=== PATIENT | male | born 1945 | race Caucasian/White ===

== ENCOUNTER 2018-02-28 13:36 | Inpatient (IN) | payer OTHER, MEDICARE ==
[~2018-02-28] VITALS: Ht 177.8 cm; Wt 93.1 kg
[2018-02-28 14:29] LABS: BASOPHIL % 0.3 % (0-2); PLATELET COUNT 226 x10^3mcL (130-400); RED CELL DISTRIBUTION WIDTH 13.3 % (11.5-14.5)
[2018-02-28 14:31] LABS: CALCIUM 8.4 mg/dL (8.5-10.1); CARBON DIOXIDE 28.6 mmol/L (21-32); CHLORIDE SERUM 103 mmol/L (98-107); CREATININE SERUM 1.5 mg/dL (0.7-1.3); GLUCOSE SERUM 98 mg/dL (74-106); POTASSIUM SERUM 3.1 mmol/L (3.5-5.1); SODIUM SERUM 141 mmol/L (136-145)
[2018-02-28 14:36] LABS: ALKALINE PHOSPHATASE 56 U/L (46-116); ALT/SGPT 13 U/L (16-63); AST/SGOT 15 U/L (15-37); BILIRUBIN TOTAL 0.8 mg/dL (0.20-1.00); TOTAL PROTEIN, SERUM 6.4 g/dL (6.4-8.2)
[2018-02-28 14:37] LABS: ALBUMIN 3.1 g/dL (3.4-5.0)
[2018-02-28] MEDS ORDERED: ASPIR 8181 MG PO (14:40)
[2018-02-28] MEDS ORDERED: SIMVASTATIN40 M1 PO (14:41)
[2018-02-28] MEDS ORDERED: NAMENDA10 M2 PO (14:41)
[2018-02-28] MEDS ORDERED: BENAZEPRIL HYDR20 M1 PO (14:41)
[2018-02-28 15:38] LABS: T3 TOTAL 0.79 ng/mL
[2018-02-28 15:53] LABS: FREE T4 1.19 ng/dL (0.76-1.46); FREE THYROXINE INDEX 2.7 ug/dL (1.4-4.5); T4(THYROXINE) 7.2 ug/dL (4.7-13.3)
[2018-02-28 16:00] VITALS: BP 95/57
[2018-02-28 16:01] LABS: ALBUMIN 3.1 g/dL (3.4-5.0); CHOLESTEROL/HDL RATIO 3.2
[2018-02-28 17:30] VITALS: BP 95/55
[2018-02-28 19:15] VITALS: BP 94/48
[2018-02-28 20:50] VITALS: BP 92/53
[2018-02-28 20:56] LABS: microscopic required? YES; urine erythrocyte 2+ (NEGATIVE)
[2018-03-01 05:23] VITALS: BP 96/62
[2018-03-01 05:31] VITALS: BP 96/62
[2018-03-01 05:54] LABS: CALCIUM 7.6 mg/dL (8.5-10.1); CARBON DIOXIDE 24.3 mmol/L (21-32); CHLORIDE SERUM 108 mmol/L (98-107); CREATININE SERUM 1.2 mg/dL (0.7-1.3); GLUCOSE SERUM 106 mg/dL (74-106); MAGNESIUM 1.9 mg/dL (1.8-2.4); PHOSPHOROUS 3.2 mg/dL (2.5-4.9); SODIUM SERUM 143 mmol/L (136-145)
[2018-03-01 05:56] LABS: POTASSIUM SERUM 2.9 mmol/L (3.5-5.1)
[2018-03-01 06:04] LABS: BASOPHIL % 0.1 % (0-2); PLATELET COUNT 201 x10^3mcL (130-400); RED CELL DISTRIBUTION WIDTH 13.5 % (11.5-14.5)
[2018-03-01 06:29] VITALS: BP 110/57
[2018-03-01 08:37] VITALS: BP 107/60
[2018-03-01 12:50] VITALS: BP 114/70
[2018-03-01 17:05] LABS: CALCIUM 7.6 mg/dL (8.5-10.1); CARBON DIOXIDE 27.4 mmol/L (21-32); CHLORIDE SERUM 108 mmol/L (98-107); CREATININE SERUM 1.1 mg/dL (0.7-1.3); GLUCOSE SERUM 93 mg/dL (74-106); POTASSIUM SERUM 3.6 mmol/L (3.5-5.1); SODIUM SERUM 141 mmol/L (136-145)
[2018-03-01 20:27] VITALS: BP 112/69
[2018-03-02 05:48] VITALS: BP 105/69
[2018-03-02 06:34] LABS: BASOPHIL % 0.2 % (0-2); PLATELET COUNT 190 x10^3mcL (130-400); RED CELL DISTRIBUTION WIDTH 13.6 % (11.5-14.5)
[2018-03-02 06:49] LABS: CALCIUM 7.8 mg/dL (8.5-10.1); CARBON DIOXIDE 25.1 mmol/L (21-32); CHLORIDE SERUM 113 mmol/L (98-107); GLUCOSE SERUM 95 mg/dL (74-106); POTASSIUM SERUM 3.1 mmol/L (3.5-5.1); SODIUM SERUM 140 mmol/L (136-145)
[2018-03-02 09:45] VITALS: BP 117/74
[2018-03-02 13:40] VITALS: BP 111/62
[2018-03-02 17:16] VITALS: BP 113/66
[2018-03-02 17:17] LABS: CHLORIDE SERUM 111 mmol/L (98-107); CREATININE SERUM 0.9 mg/dL (0.7-1.3); GLUCOSE SERUM 98 mg/dL (74-106); POTASSIUM SERUM 3.8 mmol/L (3.5-5.1); SODIUM SERUM 137 mmol/L (136-145)
[2018-03-02 21:53] VITALS: BP 104/57
[2018-03-03 05:00] VITALS: BP 99/60
[2018-03-03 07:26] LABS: BASOPHIL % 0.3 % (0-2); PLATELET COUNT 204 x10^3mcL (130-400); RED CELL DISTRIBUTION WIDTH 13.2 % (11.5-14.5)
[2018-03-03 07:49] LABS: CARBON DIOXIDE 23.6 mmol/L (21-32); CHLORIDE SERUM 109 mmol/L (98-107); CREATININE SERUM 0.9 mg/dL (0.7-1.3); GLUCOSE SERUM 101 mg/dL (74-106); POTASSIUM SERUM 3.5 mmol/L (3.5-5.1); SODIUM SERUM 144 mmol/L (136-145)
[2018-03-03 07:58] VITALS: Ht 177.8 cm; Wt 93.1 kg
[2018-03-03 08:48] VITALS: BP 125/74
[2018-03-03 12:43] VITALS: BP 125/74
[2018-03-03] MEDS ORDERED: NOVAPLUS VANCO125 MG PO (13:16)
== END 2018-03-03 13:13 | disposition left against medical advice (07) | DRG 371 ==
LOC: ED 13:36 → MU 14:34 → DU 14:34 → MU 03-03 08:21
PROVIDERS: Emergency Medicine; Family Medicine
DX: A04.72 Enterocolitis due to Clostridium difficile, not specified as recurrent (principal); N17.0 Acute kidney failure with tubular necrosis; E44.0 Moderate protein-calorie malnutrition; E87.6 Hypokalemia; I10 Essential (primary) hypertension; E86.0 Dehydration; E78.5 Hyperlipidemia, unspecified; K80.20 Calculus of gallbladder without cholecystitis without obstruction; K42.9 Umbilical hernia without obstruction or gangrene; R31.9 Hematuria, unspecified; N28.1 Cyst of kidney, acquired; M16.12 Unilateral primary osteoarthritis, left hip; M47.897 Other spondylosis, lumbosacral region; Z79.82 Long term (current) use of aspirin; Z68.29 Body mass index [BMI] 29.0-29.9, adult; F17.210 Nicotine dependence, cigarettes, uncomplicated; Z85.46 Personal history of malignant neoplasm of prostate
CPT/HCPCS: 83880; 84439; 87046; 87046-59; 94150; 99406; C9113; J1956; J3480; J3490; J7030; J7040; Q0092; Q9967

== ENCOUNTER 2018-06-06 12:53 | Emergency (ER) | payer OTHER, MEDICARE ==
[~2018-06-06] VITALS: Ht 177.8 cm; Wt 93.0 kg
[~2018-06-06 12:53] MED LIST: ASPIR 8181 MG PO; BENAZEPRIL HYDR20 M1 PO; NAMENDA10 M2 PO; NOVAPLUS VANCO125 MG PO; SIMVASTATIN40 M1 PO
[2018-06-06 12:59] VITALS: BP 111/87; Ht 177.8 cm; Wt 93.0 kg
== END 2018-06-06 17:25 | disposition left against medical advice (07) ==
LOC: ED 12:53
DX: Z53.21 Procedure and treatment not carried out due to patient leaving prior to being seen by health care provider (principal)

== ENCOUNTER → 2018-12-15 | Outpatient (CLI) | payer OTHER, MEDICARE | END | disposition home or self-care (01) | LOC: RD 08:15 | DX: Z01.818 Encounter for other preprocedural examination (principal) ==